=== PATIENT | female | born 1965 | race Caucasian/White ===

== ENCOUNTER 2019-09-03 08:53 | Outpatient (CLI) | payer OTHER, SELFPAY ==
--- NOTE | ~2019-09-03 | MM_ITS ---
EXAMINATION: MM screening [facility] BI w yomi HISTORY: Screening TECHNIQUE: Craniocaudal and mediolateral oblique 3-D tomosynthesis images were obtained and synthetic 2-D images were generated. CAD analysis was submitted and interpreted. COMPARISON: Comparison to multiple prior studies sequentially, with oldest reviewed study dated 06/25. BREAST PARENCHYMAL COMPOSITION: There are scattered areas of fibroglandular density. FINDINGS: There is no evidence of suspicious mass, calcification, or architectural distortion to sugg est malignancy in either breast. There has been no suspicious interval change. IMPRESSION: 1. No mammographic evidence of malignancy. 2. Recommend routine screening mammography in one year. BI-RADS Category 1: Negative Reviewed, dictated and finalized at location A.
== END 2019-09-03 08:54 | disposition home or self-care (01) ==
LOC: ANHIMG 08:56
PROVIDERS: PCP Family Medicine; Visit Provider Family Medicine
DX: Z12.31 Encounter for screening mammogram for malignant neoplasm of breast (principal)
CPT/HCPCS: 77063; 77067

== ENCOUNTER 2020-02-26 12:18 | Outpatient (NON) | payer OTHER, SELFPAY ==
[2020-02-26 22:42] LABS: SARS-CoV-2 RNA PCR Negative
== END 2020-02-26 12:19 ==
LOC: ANHCOVIDDT 12:19
PROVIDERS: PCP Family Medicine; Visit Provider Physician Assistant Medical
DX: Z20.822 Contact with and (suspected) exposure to COVID-19 (principal); R05 Cough; R09.81 Nasal congestion; R09.89 Other specified symptoms and signs involving the circulatory and respiratory systems; R51.9 Headache, unspecified; R53.83 Other fatigue
CPT/HCPCS: C9803; U0003; U0005

== ENCOUNTER 2020-09-05 09:42 | Outpatient (CLI) | payer OTHER, SELFPAY ==
--- NOTE | ~2020-09-05 | MM_ITS ---
EXAMINATION: MM screening [facility] BI w yomi HISTORY: Screening mammogram TECHNIQUE: Craniocaudal and mediolateral oblique 3-D tomosynthesis images were obtained and synthetic 2-D images were generated. CAD analysis was submitted and interpreted. COMPARISON: 09/03/2019, 08/12/2018, 08/07/2017, 07/31/2016 bilateral digital screening mammogram examinati ons BREAST PARENCHYMAL COMPOSITION: There are scattered areas of fibroglandular density. FINDINGS: Bilateral biopsy markers are noted. There is no evidence of suspicious mass, calcification, or architectural distortion to suggest malignancy in either breast. There has been no suspicious int erval change. IMPRESSION: 1. No mammographic evidence of malignancy. 2. Recommend routine screening mammography in one year. BI-RADS Category 2: Benign finding(s). Reviewed, dictated and finalized at location A.
== END 2020-09-05 09:43 | disposition home or self-care (01) ==
LOC: ANHIMG 09:45
PROVIDERS: PCP Family Medicine; Visit Provider Family Medicine
DX: Z12.31 Encounter for screening mammogram for malignant neoplasm of breast (principal)
CPT/HCPCS: 77063; 77067

== ENCOUNTER → 2020-11-10 02:38 | Outpatient (CLI) | payer OTHER, SELFPAY ==
[2020-11-10 16:55] LABS: SARS-CoV-2 RNA PCR Negative
== END ==
PROVIDERS: PCP Family Medicine; Visit Provider Physician Assistant Medical
DX: R51.9 Headache, unspecified (principal); Z20.822 Contact with and (suspected) exposure to COVID-19
CPT/HCPCS: C9803; U0003; U0005

== ENCOUNTER → 2021-08-18 08:46 | Outpatient (CLI) | payer OTHER, SELFPAY ==
--- NOTE | ~2021-08-18 | MR_ITS ---
EXAMINATION: MR lower leg LT wo con DATE: 08/18/2021 09:20 INDICATION: Pain at the anterior left tibia. TECHNIQUE: Magnetic resonance imaging (MRI) of the left lower leg was performed without intravenous c ontrast. A marker was placed over the region of concern. Sequences included axial, sagittal and jovani nal T1-weighted FSE and fluid sensitive FSE STIR. The contralateral right lower leg is included on th e coronal images. COMPARISON: None. FINDINGS: There is subtle thin increased periosteal T2 signal along the anteromedial cortex of the mid left tib ial diaphysis consistent with grade 1 medial tibial stress syndrome. No abnormal increased cortical o r marrow signal in the underlying bone to suggest high-grade stress injury. No fracture or pathologic marrow replacing process. Soft tissues are otherwise unremarkable with symmetric muscle bulk and sig nal in the bilateral calves. The visualized portions of the tendons and are normal. No abnormal mi s or fluid collections identified. IMPRESSION: 1. Focal periostitis along the anteromedial cortex of the mid left tibia without underlying bone sign al abnormalities consistent with grade 1 medial tibial stress syndrome. Reviewed, dictated and finalized at location A. IMPRESSION: 1. Focal periostitis along the anteromedial cortex of the mid left tibia withou t underlying bone signal abnormalities consistent with grade [address] ress syndrome.
== END ==
PROVIDERS: PCP Family Medicine; Visit Provider Orthopaedic Surgery
DX: M79.662 Pain in left lower leg (principal)
CPT/HCPCS: 73718

== ENCOUNTER 2021-09-29 08:47 | Outpatient (CLI) | payer OTHER, SELFPAY ==
--- NOTE | ~2021-09-29 | MM_ITS ---
EXAMINATION: MM screening [facility] BI w yomi HISTORY: Screening mammogram TECHNIQUE: Craniocaudal and mediolateral oblique 3-D tomosynthesis images were obtained and synthetic 2-D images were generated. CAD analysis was submitted and interpreted. COMPARISON: 09/05/2020, 01/04/2020 08/12/2018 bilateral screening mammograms BREAST PARENCHYMAL COMPOSITION: There are scattered areas of fibroglandular density. FINDINGS: 2 biopsy markers on the left mammogram history of prior benign biopsy. There There is no ev idence of suspicious mass, calcification, or architectural distortion to suggest malignancy in either breast. There has been no suspicious interval change. IMPRESSION: 1. No mammographic evidence of malignancy. 2. Recommend routine screening mammography in one year. BI-RADS Category 1: Negative Reviewed, dictated and finalized at location A.
== END 2021-09-29 08:48 | disposition home or self-care (01) ==
LOC: ANHIMG 08:52
PROVIDERS: PCP Family Medicine; Visit Provider Family Medicine
DX: Z12.31 Encounter for screening mammogram for malignant neoplasm of breast (principal)
CPT/HCPCS: 77063; 77067

== ENCOUNTER 2021-11-16 15:56 | Outpatient (NON) | payer OTHER, SELFPAY ==
[2021-11-16 19:17] LABS: IFOB Positive Control Positive; Immunochemical Fecal Occult Bl Negative (N)
== END 2021-11-16 15:57 | disposition home or self-care (01) ==
PROVIDERS: PCP Family Medicine; Visit Provider Family Medicine
DX: Z12.11 Encounter for screening for malignant neoplasm of colon (principal)
CPT/HCPCS: 82274

== ENCOUNTER 2022-12-25 16:54 | Outpatient (CLI) | payer OTHER, SELFPAY ==
--- NOTE | ~2022-12-25 | MM_ITS ---
EXAMINATION: MM screening [facility] BI w yomi HISTORY: Screening mammogram TECHNIQUE: Craniocaudal and mediolateral oblique 3-D tomosynthesis images were obtained and synthetic 2-D images were generated. CAD analysis was submitted and interpreted. COMPARISON: 09/29/2021, 09/05/2020, 09/03/2019 BREAST PARENCHYMAL COMPOSITION: There are scattered areas of fibroglandular density. FINDINGS: No suspicious mass, calcification, or architectural distortion are identified in either shoaib ast to suggest malignancy. There has been no suspicious interval change. IMPRESSION: 1. No mammographic evidence of malignancy. 2. Recommend routine screening mammography in one year. BI-RADS Category 1: Negative Reviewed, dictated and finalized at location A. [employer]
== END 2022-12-25 16:55 | disposition home or self-care (01) ==
PROVIDERS: PCP Family Medicine; Visit Provider Family Medicine
DX: Z12.31 Encounter for screening mammogram for malignant neoplasm of breast (principal)
CPT/HCPCS: 77063; 77067

== ENCOUNTER 2023-05-31 01:16 | Day surgery (SDC) | payer OTHER, SELFPAY ==
--- NOTE | 2023-05-22 17:08 | PC.NURSE ---
Report to the Outpatient Waiting Room, entrance under the green pavilion located off [facility], at time 0830 on date 05/31/23. Planned Procedure Time: 1030. Time changes happen often and if your time is changed the preop area will call you the afternoon before. - You and your visitor will be asked to self-screen and do not enter if you have any COVID symptoms. - A mask is optional within the hospital at this time. Patients may have clear liquids (water, carbonated beverages, clear teas, apple juice) until 3 hours prior to surgery with a maximum of 20 ounces. 0730 - No food from midnight until time of surgery - Infants may have breast milk until 4 hours before surgery, formula 6 hours prior to surgery. - Children will be allowed to drink immediately following surgery. If applicable, please bring a bottle or sippy cup to assist with drinking. Juice, water, soda, and popsicles are readily available. For infants on formula, please bring formula the day of surgery. Pacifiers are allowed. Take the following medications with a SIP of water the morning of surgery: NONE DO NOT STOP ANY OF YOUR OTHER PRESCRIPTION MEDICATIONS PRIOR TO SURGERY ?EXCEPT THE FOLLOWING Medications to discontinue per physician VITAMINS AND SUPPLEMENTS- PLEASE STOP 3 DAYS PRIOR TO YOUR PROCEDURE Date to take last dose Please no make-up, nail thai, hairspray, perfume, deodorant, or body powder the day of surgery. No jewelry (including any body piercings) or valuables the day of surgery, leave them at home. Please take a shower or bath the night before, or the morning of, surgery with an antibacterial soap. Wear comfortable, loose fitting clothing. Children are encouraged to wear pajamas. - Jewelry must be removed prior to entering the operating room. Rings and piercings that are not removed may be cut off. - The hospital will not accept responsibility for valuables. - Please leave all valuables, including medications, at home the day of surgery. If you are going home after surgery, a licensed milk wagon driver must drive you home. - NO public transportation without another adult if you receive anesthesia. - We recommend that an adult stay with you for 24 hours following discharge. - We also recommend that you do not drive, make important decision, drink alcoholic beverages, or take any drugs that were not prescribed by your health care provider for at least 24 hours after your discharge time. For Pediatric surgeries, we recommend two adults accompany the child home. Follow any additional instructions given to you from your surgeon. If you or anyone in your household have experienced Covid symptoms in the past week, please notify your surgeon or the nurse liaison at the phone number below for possible testing. Telephone instructions given to PATIENT- BETHANY AVILA and asked if any additional questions and then verbalized understanding. Patient advised to call surgeon office or pre surgery nurse liaison [phone] if any additional questions.
[2023-05-22 17:15] VITALS: BMI 25.1
--- NOTE | 2023-05-26 21:13 | PM.IMHP ---
H&P: HPI History of Present Illness Date/Time: 05/26/23 21:13 Chief Complaint: DUANE Narrative: 57 yo with mixed incontinence. Here for treatment of DUANE Review of Systems Review of Systems: All systems reviewed & are unremarkable except as noted in HPI and below [facility] Past Medical History Medical History (Updated 05/26/23 @ 21:15 by Carlos Oliveira MD) Benign hypertension Mixed hyperlipidemia 8.16.21 ct coronary artery calcium score: 0 Postmenopausal atrophic vaginitis Stress incontinence, female Family History Family History Other Family history of malignant neoplasm Social History Social History Smoking status: Never smoker Alcohol intake: current Drinks per week: 4 Substance use: never Substance use type: does not use Do You Feel Safe in your Home?: Yes Lack of Transportation: No Lack of Food: Never True Current Housing: I Have Housing Concerned About Future Housing: No Difficulty Paying Gas/Electric Bills: No Difficulty Paying for Meds: No Currently Unemployed: No Education: Master's Degree or Higher Difficulty w/ Childcare or Family Care: No Occupation/Education: occupation Gender identity (if verbalized by the patient): Female Spiritual care concerns: No Meds Home Medications and Allergies Home Medications Medication Instructions Recorded Confirmed Type calcium carbonate 500 mg-vitamin 2 tablet PO USEASDIRECTD 10/23/22 05/22/23 History D3 10 mcg (400 unit) tablet cetirizine 10 mg tablet (Zyrtec) 10 mg PO DAILY 10/23/22 05/22/23 History rosuvastatin 5 mg tablet 5 mg PO HS 10/23/22 05/22/23 History [place] 3 3 cap PO DIRECTED 05/22/23 05/22/23 History estradiol 1 mg/gram (0.1 %) 1,000 mg topical HS 05/22/23 05/22/23 History transdermal gel packet lisinopril 5 mg tablet 5 mg PO DAILY 05/22/23 05/22/23 History metformin 500 mg tablet,extended 500 mg PO BID 05/22/23 05/22/23 History release 24hr (osmotic) progesterone micronized 200 mg 200 mg PO HS 05/22/23 05/22/23 History capsule Allergies Allergy/AdvReac Type Severity Reaction Status Date / Time No Known Allergies Allergy Verified 05/22/23 16:48 Exam Narrative: NAD normal breathing A+o X3 + urethral mobility Assessment and Plan Assessment and plan (1) Stress incontinence, female: Code(s): N39.3 - Stress incontinence (female) (male) Status: Acute Assessment and Plan: urethral sling
--- NOTE | 2023-05-31 04:50 | WPDHPUPDATE1 ---
History and Physical Update Update Date/Time: 05/31/23 04:50 History and Physical has been reviewed, including an updated exam of the patient. There are NO changes in the patient's condition. Risks, benefits, and alternatives have been discussed and questions answered. Patient agrees to proceed with procedure.
[2023-05-31 08:28] VITALS: BP 118/75; PULSE 71; RESP 16; TEMP 36.8; O2SAT 99
--- NOTE | 2023-05-31 09:05 | P.PNAN_ITS ---
Anes - Initial Pre Proc Eval Procedure: Operation Date: 05/31/23 09:45 Proposed Procedures p Urethral Sling - Carlos Oliveira MD Date/Time: 05/31/23 09:05 Surgeon: Carlos Oliveira MD Pre Op Diagnosis: stress incontinence Patient Data Age: 57 Gender: F Height: 1.7 m Weight: 78.5 kg Last Vital Signs Temp 36.8 C 05/31/23 08:28 Pulse 71 05/31/23 08:28 Resp 16 05/31/23 08:28 BP 118/75 05/31/23 08:28 Pulse Ox 99 05/31/23 08:28 O2 Del Method Room Air 05/31/23 08:28 Allergies Allergy/AdvReac Type Severity Reaction Status Date / Time No Known Allergies Allergy Verified 05/31/23 07:54 Home Medications Medication Instructions Recorded Confirmed Type calcium carbonate 500 mg-vitamin 2 tablet PO USEASDIRECTD 10/23/22 05/22/23 History D3 10 mcg (400 unit) tablet cetirizine 10 mg tablet (Zyrtec) 10 mg PO DAILY 10/23/22 05/22/23 History rosuvastatin 5 mg tablet 5 mg PO HS 10/23/22 05/22/23 History [place] 3 3 cap PO DIRECTED 05/22/23 05/22/23 History estradiol 1 mg/gram (0.1 %) 1,000 mg topical HS 05/22/23 05/22/23 History transdermal gel packet lisinopril 5 mg tablet 5 mg PO DAILY 05/22/23 05/22/23 History metformin 500 mg tablet,extended 500 mg PO BID 05/22/23 05/22/23 History release 24hr (osmotic) progesterone micronized 200 mg 200 mg PO HS 05/22/23 05/22/23 History capsule Patient hx anesthesia problems: none Family hx anesthesia problems: none Results Review: All pre-operative results and documents have been reviewed as part of the pre- operative evaluation. [facility] Past Medical History Medical History Benign hypertension Mixed hyperlipidemia 8.16.21 ct coronary artery calcium score: 0 Postmenopausal atrophic vaginitis Stress incontinence, female Family History Family History Other Family history of malignant neoplasm Social History Social History Smoking status: Never smoker Alcohol intake: current Drinks per week: 4 Substance use: never Substance use type: does not use Do You Feel Safe in your Home?: Yes Lack of Transportation: No Lack of Food: Never True Current Housing: I Have Housing Concerned About Future Housing: No Difficulty Paying Gas/Electric Bills: No Difficulty Paying for Meds: No Currently Unemployed: No Education: Master's Degree or Higher Difficulty w/ Childcare or Family Care: No Occupation/Education: occupation Gender identity (if verbalized by the patient): Female Spiritual care concerns: No Anes - Eval Final PreProcedure Day of Procedure 05/31/23 09:05 Patient weight: overweight Heart: regular rate and rhythm Lungs: clear to auscultation Airway: Mallampati scale class II Neurological: alert and oriented Last oral intake: >/= 8 hours ASA classification: II Emergent: no Anesthetic plan: proceed Anesthesia type and monitoring: general LMA and standard monitoring Results Review: All pre-operative results and documents have been reviewed as part of the pre- operative evaluation. Informed Consent: The patient's anesthetic plan and its attendant risks and benefits were discussed with the patient/family/POA. Questions were solicited and answers provided to the satisfaction of the patient/family/POA.
[2023-05-31] MEDS: LACTATED RINGERS 1,000 ML 30 ML IV CONT (09:36)
[2023-05-31] MEDS: ceFAZolin 2 GM/D5W 50 ML 2 GM/50 ML BAG IVPB (09:40)
[2023-05-31 10:12] VITALS: BP 96/56; PULSE 69; RESP 16; O2SAT 96
--- NOTE | 2023-05-31 10:16 | P.OP_ITS ---
Procedure Note - Detailed Date of Procedure 05/31/23 Pre-op Diagnosis stress incontinence Post-op Diagnosis Same Procedure Performed mid urethral sling cystoscopy Surgeon Carlos Oliveira MD Anesthesia MAC and Local Indications This is a female with confirm stress urinary incontinence. She desires surgical correction. She understands the risks of bleeding, infection, injury to the urinary tract, vaginal mesh extrusion, urinary tract mesh erosion, obstructive voiding requiring a secondary procedure, hip and leg pain, dyspareunia, inability to improve overactive bladder symptoms. She agrees to proceed. Description of Procedure She was correctly identified. Informed consent obtained. She was brought the operating room. She was given appropriate anesthesia. She was given appropriate perioperative antibiotics. A time-out performed. I marked out the site of the inner thigh incisions. I anesthetized the skin and made those incisions. I anesthetized the anterior vaginal wall over the mid urethra. I made a 1 cm incision. I dissected out laterally taking great care not to injure the urethra or vaginal wall. I passed the helical trocars. First on the left. Then on the right. I did this from the thigh incision towards the vaginal inc ision. The sling was connected to the trocars and brought out through the thigh incision. I tensioned the sling appropriately. I cut and the plastic sheaths. I then closed the incision with 2 0 Vicryl. On cystoscopy there is no tumors or surgical artifact. There was no surgical artifact in the urethra. I cut the excess sling material. Close incisions with glue. She was awakened and transferred to the PACU in stable condition. Implants Urethral sling Estimated Blood Loss 20 Drains No Packing No Pathology None sent Complications No immediate complications Condition Stable Disposition PACU
[2023-05-31 10:30] VITALS: BP 105/68; PULSE 66; RESP 15; O2SAT 99
[2023-05-31] MEDS: oxyCODONE HCL (*CRX) 5 MG TAB IR PO (10:54)
[2023-05-31 11:00] VITALS: BP 116/78; PULSE 56; RESP 15
[2023-05-31 11:19] VITALS: BP 128/72; PULSE 48; RESP 16
== END 2023-05-31 11:34 | disposition home or self-care (01) ==
PROVIDERS: PCP Family Medicine; Visit Provider Urology
PROC: (CPT 57288; principal; 2023-05-31 09:45)
DX: N39.3 Stress incontinence (female) (male) (principal); I10 Essential (primary) hypertension; E78.2 Mixed hyperlipidemia; Z79.84 Long term (current) use of oral hypoglycemic drugs
CPT/HCPCS: 57288; A9270; C1771; J0690; J2250; J2704; J7030; J7120

== ENCOUNTER 2023-10-02 15:14 | Outpatient (CLI) | payer OTHER, SELFPAY ==
--- NOTE | ~2023-10-02 | MM_ITS ---
EXAMINATION: MM screening [facility] BI w yomi HISTORY: Screening TECHNIQUE: Craniocaudal and mediolateral oblique 3-D tomosynthesis images were obtained and synthetic 2-D images were generated. CAD analysis was submitted and interpreted. COMPARISON: Comparison to multiple prior studies sequentially, with oldest reviewed study dated 08/07. BREAST PARENCHYMAL COMPOSITION: Not dense: There are scattered areas of fibroglandular density. FINDINGS: There is no evidence of suspicious mass, calcification, or architectural distortion to sugg est malignancy in either breast. There has been no suspicious interval change. IMPRESSION: 1. No mammographic evidence of malignancy. 2. Recommend routine screening mammography in one year. BI-RADS Category 1: Negative Reviewed, dictated and finalized at location B.
== END 2023-10-02 15:15 | disposition home or self-care (01) ==
LOC: ANHIMG 15:15
PROVIDERS: PCP Family Medicine; Visit Provider Family Medicine
DX: Z12.31 Encounter for screening mammogram for malignant neoplasm of breast (principal)
CPT/HCPCS: 77063; 77067

== ENCOUNTER 2023-12-25 13:57 | Outpatient (CLI) | payer OTHER, SELFPAY ==
--- NOTE | ~2023-12-25 | US_ITS ---
US pelvic complete w TV Ordering provider: Jun Deleon History: . Abnormal uterine vaginal bleeding . Comparison: None. Technique: Transabdominal and endovaginal ultrasound of the pelvis (Doppler ultrasound interrogation techniques used as needed for this exam.) FINDINGS: CERVIX: Normal. UTERUS: Measures 9.3x 4.6x 6.1 cm in length which is within normal limits and is anteverted. No myom etrial masses. ENDOMETRIUM: Normal in thickness measuring 7 mm. Vascular areas seen in the left endometrial cavity m easuring 1.6 x 1.5 x 1.5 cm. Evaluation for is advised. Polyp and submucosal fibroid is als o possible. CUL DE SAC: No free fluid. RIGHT OVARY: Not visualized. LEFT OVARY: Normal in size measuring 2.7x 1.7x 1.9 cm. Normal echotexture. Doppler vascular flow pres ent. ADNEXA: Normal. No mass. IMPRESSION: Vascular area in the left endometrial cavity. Clinical correlation and follow-up advised. Otherwise, normal pelvic ultrasound. Reviewed, dictated and finalized at location A. [employer] IMPRESSION: Vascular area in the left endometrial cavity. Clinical correlation and follow-u p advised. Otherwise, normal pelvic ultrasound.
== END 2023-12-25 13:58 | disposition home or self-care (01) ==
LOC: MICIMG 13:58
PROVIDERS: PCP Family Medicine
DX: N93.9 Abnormal uterine and vaginal bleeding, unspecified (principal); N93.8 Other specified abnormal uterine and vaginal bleeding
CPT/HCPCS: 76830; 76856

== ENCOUNTER 2024-01-23 16:28 | Outpatient (CLI) | payer OTHER, SELFPAY ==
[2024-01-23 16:45] LABS: Hematocrit 42.2 % (37.0-47.0); Hemoglobin 14.6 g/dL (12.0-15.0)
[2024-01-23 16:56] LABS: Anion Gap 5 mmol/L (4-12); Blood Urea Nitrogen 17 mg/dL (7-17); Calcium 9.4 mg/dL (8.4-10.2); Carbon Dioxide 27 mmol/L (22-30); Chloride 104 mmol/L (98-107); Estimated Glomerular Filt Rate > 60; Glucose 99 mg/dL (65-110); Sodium 136 mmol/L (137-145)
== END 2024-01-23 16:29 | disposition home or self-care (01) ==
LOC: ANHLAB 16:30
PROVIDERS: Anesthesiology; PCP Family Medicine; Visit Provider Student in an Organized Health Care Education/Training Program
DX: N95.0 Postmenopausal bleeding (principal); Z79.899 Other long term (current) drug therapy
CPT/HCPCS: 36415; 80048; 85014; 85018

== ENCOUNTER 2024-01-30 01:29 | Day surgery (SDC) | payer OTHER, SELFPAY ==
[2024-01-23 10:02] VITALS: BMI 25.0
--- NOTE | 2024-01-23 10:25 | PC.NURSE ---
Report to the Outpatient Waiting Room, entrance under the green pavilion located off [facility], at time _10:00AM on date 01/30/24 . Planned Procedure Time: __12:00 .? Time changes happen often and if your time is changed the preop area will call you the afternoon before. - You and your visitor will be asked to self-screen and do not enter if you have any COVID symptoms. Please call surgeon if you need to reschedule. - A mask is optional within the hospital at this time. Patients may have clear liquids (water, carbonated beverages, clear teas, apple juice) until 3 hours prior to surgery with a maximum of 20 ounces. - No food from midnight until time of surgery and no smoking. This includes no chewing gum, candy or mints. Take only the following medications with a SIP of water on the morning of surgery: __NONE DO NOT STOP ANY OF YOUR OTHER PRESCRIPTION MEDICATIONS PRIOR TO SURGERY EXCEPT THE FOLLOWING Medications to discontinue per physician CALCIUM W/ VIT D; OMEGA 3 Date to take last dose____01/27/24 Please no make-up, nail malawian, hairspray, perfume, deodorant, or body powder the day of surgery.? No jewelry (including any body piercings) or valuables the day of surgery, leave them at home.? Please take a shower or bath the night before, or the morning of, surgery with an antibacterial soap.? Wear comfortable, loose fitting clothing.? - Jewelry must be removed prior to entering the operating room.? Rings and piercings that are not removed may be cut off. - The hospital will not accept responsibility for valuables.? - Please leave all valuables, including medications, at home the day of surgery. If you are going home after surgery, a licensed inventory associate and driver must drive you home.? - NO public transportation without another adult if you receive anesthesia. - We recommend that an adult stay with you for 24 hours following discharge. - We also recommend that you do not drive, make important decision, drink alcoholic beverages, or take any drugs that were not prescribed by your health care provider for at least 24 hours after your discharge time. Follow any additional instructions given to you from your surgeon. Telephone instructions given to __CORTNEYA and asked if any additional questions and then verbalized understanding. Patient advised to call surgeon office or pre surgery nurse liaison [phone] if any additional questions.
--- NOTE | 2024-01-30 07:30 | PM.IMHP ---
H&P: HPI History of Present Illness Date/Time: 01/30/24 07:30 Chief Complaint: postmenopausal bleeding thickened endometrium Narrative: 58-year-old female who presents for hysteroscopy D&C for postmenopausal bleeding and thickened endometrium. The patient had a pelvic ultrasound ordered after an episode of postmenopausal bleeding. Last March patient started hormone replacement therapy. She has been receiving Estradiol/Testosterone pellets as well as a Progesterone pill. Pelvic US showed a thickened endometrium at 7mm with Vascular area in the endometrial cavity measuring 1.5 cm. Review of Systems Cardiovascular: Cardiovascular: Denies chest pain, Denies leg edema, Denies palpitations, Denies dyspnea and Denies dyspnea on exertion Respiratory: Respiratory: Denies cough, Denies dyspnea and Denies dyspnea on exertion Gastrointestinal: Gastrointestinal: Denies abdominal pain, Denies constipation, Denies diarrhea, Denies nausea and Denies vomiting Genitourinary: Genitourinary: Denies hematuria, Denies urinary frequency, Denies dysuria, Denies pelvic pain, Denies urinary incontinence and Denies vaginal discharge Neurologic: Reports system reviewed and no additional complaints, except as documented Psychiatric: Psychiatric: Reports no additional psychiatric complaints Endocrine: Endocrine: Denies palpitations [facility] Past Medical History Medical History Benign hypertension Mixed hyperlipidemia 8.16.21 ct coronary artery calcium score: 0 Postmenopausal atrophic vaginitis Stress incontinence, female Surgical History Surgical History History of bladder suspension procedure Family History Family History Other Family history of malignant neoplasm Social History Social History Smoking status: Never smoker Alcohol intake: never Drinks per week: 2 Substance use: never Substance use type: does not use Do You Feel Safe in your Home?: Yes Lack of Transportation: No Lack of Food: Never True Current Housing: I Have Housing Concerned About Future Housing: No Difficulty Paying Gas/Electric Bills: No Difficulty Paying for Meds: No Currently Unemployed: No Education: Master's Degree or Higher Difficulty w/ Childcare or Family Care: No Living arrangements: with family Occupation/Education: occupation Gender identity (if verbalized by the patient): Female Spiritual care concerns: No Meds Home Medications and Allergies Home Medications ?Medication ?Instructions ?Recorded ?Confirmed ?Type calcium 500 mg (as 2 tablet PO USEASDIRECTD 10/23/22 01/23/24 History carbonate)-vitamin D3 10 mcg (400 unit) tablet cetirizine 10 mg tablet (Zyrtec) 10 mg PO DAILY 10/23/22 01/23/24 History [place] 3 3 cap PO DIRECTED 05/22/23 01/23/24 History lisinopril 5 mg tablet 5 mg PO DAILY #90 tabs 09/24/23 01/23/24 Rx metformin 500 mg tablet,extended 500 mg PO BID #180 tabs 10/16/23 01/23/24 Rx release 24 hr progesterone micronized 200 mg 300 mg PO HS 10/22/23 01/23/24 History capsule spironolactone 100 mg tablet 100 mg PO DAILY 10/22/23 01/23/24 History rosuvastatin 5 mg tablet 5 mg PO HS #90 tabs 10/28/23 01/23/24 Rx Allergies Allergy/AdvReac Type Severity Reaction Status Date / Time No Known Allergies Allergy Verified 01/23/24 10:25 Exam Const: General: no acute distress Eyes: EOM: EOMs intact bilaterally Neck: Neck: supple Thyroid: thyroid normal Chest: Breast/axilla inspection: normal inspection of the breasts Breast/axilla palpation: normal palpation of the breasts, normal palpation of the axillae and no axillary lymphadenopathy Resp: Effort & Inspection: normal respiratory effort Auscultation: clear to auscultation bilaterally Cardio: Rate: regular rate Rhythm: regular rhythm GI: Inspection: non-distended GI Palp: Yes Soft to palpation, No Tenderness to palpation present (GI) and No Guarding due to palpation present (GI) Auscultation: normal bowel sounds : General: No bladder normal to palpation External Female Exam: normal external appearance Speculum Exam - Vagina: normal vaginal discharge and No vaginal bleeding Speculum Exam - Cervix: nontender Bimanual exam- vagina & uterus: No bladder normal to palpation and No Cervical tenderness present OB/external & speculum: No vaginal bleeding Skin: General skin exam: normal color and no rashes or lesions noted Neuro: Cognition (Neuro): normal cognition Speech: normal speech Extrem: General: normal to inspection and no edema Psych: Mental Status: mental status grossly normal Affect: normal affect Assessment and Plan Assessment and plan (1) Endometrial thickening on ultrasound: Code(s): R93.89 - Abnormal findings on diagnostic imaging of other specified body structures Status: Acute Assessment and Plan: 58-year-old female who presents to discuss recent pelvic ultrasound Patient had a pelvic ultrasound ordered after episodes of postmenopausal bleeding Pelvic ultrasound images reviewed endometrium 7 mm. Vascular areas seen in the left endometrial cavity measuring 1.6 x 1.5 x 1.5 cm Recommended tissue sampling Discussed hysteroscopy D& C. Risks, benefits, alternatives discussed Will plan for hysteroscopy D&C (2) Postmenopausal bleeding: Code(s): N95.0 - Postmenopausal bleeding Status: Acute
--- NOTE | 2024-01-30 10:27 | P.PNAN_ITS ---
Anes - Initial Pre Proc Eval Procedure: Operation Date: 01/30/24 12:00 Proposed Procedures p Hysteroscopy Dilation and Curettage - Rome Roberson MD Date/Time: 01/30/24 10:27 Surgeon: Rome Roberson MD Pre Op Diagnosis: Post Menopausal Bleeding Patient Data Age: 58 Gender: F Height: 1.7 m Weight: 72.3 kg Allergies Allergy/AdvReac Type Severity Reaction Status Date / Time No Known Allergies Allergy Verified 01/23/24 10:25 Home Medications ?Medication ?Instructions ?Recorded ?Confirmed ?Type calcium 500 mg (as 2 tablet PO USEASDIRECTD 10/23/22 01/23/24 History carbonate)-vitamin D3 10 mcg (400 unit) tablet cetirizine 10 mg tablet (Zyrtec) 10 mg PO DAILY 10/23/22 01/23/24 History [place] 3 3 cap PO DIRECTED 05/22/23 01/23/24 History lisinopril 5 mg tablet 5 mg PO DAILY #90 tabs 09/24/23 01/23/24 Rx metformin 500 mg tablet,extended 500 mg PO BID #180 tabs 10/16/23 01/23/24 Rx release 24 hr progesterone micronized 200 mg 300 mg PO HS 10/22/23 01/23/24 History capsule spironolactone 100 mg tablet 100 mg PO DAILY 10/22/23 01/23/24 History rosuvastatin 5 mg tablet 5 mg PO HS #90 tabs 10/28/23 01/23/24 Rx Patient hx anesthesia problems: none Family hx anesthesia problems: none Results Review: All pre-operative results and documents have been reviewed as part of the pre- operative evaluation. [facility] Past Medical History Medical History Mixed hyperlipidemia 8.16.21 ct coronary artery calcium score: 0 Benign hypertension Postmenopausal atrophic vaginitis Stress incontinence, female Surgical History Surgical History History of bladder suspension procedure Family History Family History Other Family history of malignant neoplasm Social History Social History Smoking status: Never smoker Alcohol intake: never Drinks per week: 2 Substance use: never Substance use type: does not use Do You Feel Safe in your Home?: Yes Lack of Transportation: No Lack of Food: Never True Current Housing: I Have Housing Concerned About Future Housing: No Difficulty Paying Gas/Electric Bills: No Difficulty Paying for Meds: No Currently Unemployed: No Education: Master's Degree or Higher Difficulty w/ Childcare or Family Care: No Living arrangements: with family Occupation/Education: occupation Gender identity (if verbalized by the patient): Female Spiritual care concerns: No Anes - Eval Final PreProcedure Day of Procedure 01/30/24 10:27 Patient weight: normal Heart: regular rate and rhythm Lungs: clear to auscultation Airway: Mallampati scale class II Neurological: alert and oriented Last oral intake: >/= 8 hours ASA classification: II Emergent: no Anesthetic plan: proceed Anesthesia type and monitoring: general GIVS and standard monitoring Results Review: All pre-operative results and documents have been reviewed as part of the pre- operative evaluation. Informed Consent: The patient's anesthetic plan and its attendant risks and benefits were discussed with the patient/family/POA. Questions were solicited and answers provided to the satisfaction of the patient/family/POA.
[2024-01-30 10:30] VITALS: BP 124/78; PULSE 74; RESP 16; TEMP 36; O2SAT 99
[2024-01-30] MEDS: LACTATED RINGERS 1,000 ML 30 ML IV CONT (10:30)
[2024-01-30] MEDS: ACETAMINOPHEN 500 MG TABLET 1000 MG PO (10:46)
--- NOTE | 2024-01-30 10:46 | WPDHPUPDATE1 ---
History and Physical Update Update Date/Time: 01/30/24 10:46 History and Physical has been reviewed, including an updated exam of the patient. There are NO changes in the patient's condition. Risks, benefits, and alternatives have been discussed and questions answered. Patient agrees to proceed with procedure.
--- NOTE | 2024-01-30 11:14 | W.PM.PROC2 ---
Procedure Note - Detailed Date of Procedure 01/30/24 Pre-op Diagnosis Post Menopausal Bleeding thickened endometrium Post-op Diagnosis Same Procedure Performed hysteroscopy dilation & curettage Surgeon Rome Roberson MD Anesthesia General Indications postmenopausal bleeding thickened endometrium Findings globally thickened endometrium, large polypoid lesion extending from the anterior left uterine serosa, there is a calcified lesions adjacent to the polypoid lesions that appears to be a fibroid, normal tubal ostia bilaterally Description of Procedure Maya Price presents for the above procedure. She was counseled as to the indications, risks, benefits, and alternatives to surgery, with the risks including bleeding, infection, damage to surrounding organs, VTE, and complications of anesthesia. Her verbal and written consent was obtained. PROCEDURE: The patient was taken to the OR and general anesthesia induced. She was prepped and draped in Diego stirrups with support of the back and bilateral lower extremities. I/O catheterization performed of the bladder. The above findings were noted. A single tooth tenaculum was placed on the anterior lip of the cervix. Hysteroscopy, using a normal saline medium, was performed and showed the above findings. Operative hysteroscopy was performed to obtain tissue sampling with the oscillating blade under direct visualization. The polypoid lesion and the fibroid lesion were sampled as well as the endometrial lining. Sharp uterine curettage was then performed and tissue placed on Telfa. The tenaculum was removed and hemostasis was observed. The patient tolerated the procedure well. Sponge, lap, and needle counts were correct. The patient had SCD's on throughout the case for VTE prophylaxis. The patient was taken to the recovery room in stable condition. Estimated Blood Loss 5 Urine Output 25 Drains No Packing No Pathology Yes (endometrial curettings ) Complications No immediate complications Condition Stable Disposition PACU [facility] Billing Surgery - Charge Forward: Surgery Billing
[2024-01-30 11:18] VITALS: BP 108/69; PULSE 78; RESP 16; O2SAT 97
[2024-01-30 11:48] VITALS: BP 108/72; PULSE 72; RESP 16; O2SAT 96
[2024-01-30 12:18] VITALS: BP 121/69; PULSE 54; RESP 16
[2024-01-30 12:45] VITALS: BP 105/65; PULSE 67
== END 2024-01-30 13:00 | disposition home or self-care (01) ==
PROVIDERS: PCP Family Medicine; Visit Provider Student in an Organized Health Care Education/Training Program
PROC: 0U5B8ZZ Destruction of Endometrium, Via Natural or Artificial Opening Endoscopic (ICD-10-PCS; CPT 58563; principal; 2024-01-30 12:00)
DX: N95.0 Postmenopausal bleeding (principal); E78.5 Hyperlipidemia, unspecified; I10 Essential (primary) hypertension; N39.3 Stress incontinence (female) (male); Z79.84 Long term (current) use of oral hypoglycemic drugs; N84.0 Polyp of corpus uteri
CPT/HCPCS: 58558; 88305; A9270; J1100; J1885; J2003; J2250; J2405; J2704; J7030; J7120

== ENCOUNTER 2024-12-02 07:57 | Outpatient (CLI) | payer OTHER, SELFPAY ==
--- NOTE | ~2024-12-02 | MM_ITS ---
EXAMINATION: MM screening an[facility] BI w [facility] HISTORY: Screening TECHNIQUE: Craniocaudal and mediolateral oblique 3-D tomosynthesis images were obtained and synthetic 2-D images were generated. CAD analysis was submitted and interpreted. COMPARISON: Comparison to multiple prior studies sequentially, with oldest reviewed study dated , 09/03/2019 BREAST PARENCHYMAL COMPOSITION: There are scattered areas of fibroglandular density. FINDINGS: There is no evidence of suspicious mass, calcification, or architectural distortion to suggest malignancy in either breast. Biopsy clips in both breast. IMPRESSION: 1. No mammographic evidence of malignancy. 2. Recommend routine screening mammography in one year. BI-RADS Category 1: Negative Reviewed, dictated and finalized at location B.
--- OUTSIDE RECORDS SUMMARY | 2024-12-02 08:03 | XMS_ITS | Clinical Summary ---
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 Gender Identity Not on file Sexual Orientation Not on file Plan of Treatment Health Maintenance Due Date Last Done Comments Hepatitis C Virus (HCV) Screening 1966 TdaP Immunization 1966 Hepatitis B Immunization (1 of 3 - 19+ 3-dose series) 1985 Pap Smear 08/18/1987 Cervical Cancer Screening (CCS) 1996 HPV/Cotest 1996 Cologuard 08/18/2011 Colonoscopy 08/18/2011 Colorectal Cancer Screening 08/18/2011 Immunochemical Fecal Occult Blood 08/18/2011 Pneumococcal Immunization (5 0+ years) (1 of 1 - PCV) 2016 Zoster Immunization (1 of 2) 2016 Influenza Immunization (#1) 2024 SARS-COV-2 Immunization ( season) 2024 Respiratory Syncytial Virus (RSV) Immunization (Adult) (1 - 1-dose 75+ series) 2041 Human Papillomavirus (HPV) Immunization Aged Out No longer eligible b ased on patient's age to complete this topic Meningococcal Immunization (ACWY) Aged Out No longer eligible based on patient's age to complete this topic Rotavirus Immunization Aged Out No lo nger eligible based on patient's age to complete this topic
--- OUTSIDE RECORDS SUMMARY | 2024-12-02 08:03 | XMS_ITS | Clinical Summary ---
Author Organization [facility] [place] [address] [facility] [address] Address [address] [place] [address] Care Team Providers Care Radiator Tester Name Role Phone Juliet Turner MD Primary Care Provider + Allergies No known active allergies Medications cetirizine (ZyrTEC) 10 mg tablet Take 10 mg by mouth daily Active lisinopriL (PRINIVIL,ZESTRI L) 5 mg tablet Take 5 mg by mouth daily 2 Active rosuvastatin (CRESTOR) 5 mg tablet TAKE 1 TABLET DAILY 30 tablet 11 4 Active metFORMIN (FORTAMET) 500 mg 24 hr tablet Take 2 tablets (1,000 mg total) by mouth daily with breakfast Active albuterol HFA (PROVENTIL HFA,VENTOLIN HFA,PROAIR HFA) 90 mcg/actuation inhalerIndicatio ns:Lower respiratory tract infection Inhale 2 puffs every 4 (four) hours as needed for wheezing 1 each 5 Active inhalational spacing device spacerIndication s:Lower respiratory tract infection 1 Device every 4 (four) hours as needed (use with Albuterol inhaler prn) 1 each 5 Active Active Problems Problem Noted Date Diagnosed Date Primary hypertension 01/10/2022 Elevated blood pressure read ing without diagnosis of hypertension 09/14/2019 Mixed dyslipidemia 09/14/2019 Skin neoplasm 03/24/2015 Actinic keratosis 03/24/2015 Medical History Medical History Date Comments Dyslipidemia Family History Medical History Relation Name Comments Diabetes Other Family history of diabetes mellitus - (Added by TW Conv) Relation Name Status Comments Other Social History Tobacco Use Types Packs/Day Years Used Date Smoking Tobacco: Never Smokeless Tobacco: Never Tobacco Cessation:Counseling Given: Not Answered Alcohol Use Standard Drinks/Week Comments Yes 0 (1 standard drink = 0.6 oz pur e alcohol) Comments Unknown Sex and Gender Information Value Date Recorded Sex Assigned at Not on file 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 Gender Identity Not on file Sexual Orientation Not on file Obstetrics History Last Filed Vital Signs Vital Sign Reading Time Taken Comments Blood Pressure 139/80 05/17/2024 6:09 PM CDT Pulse 86 05/17/2024 6:09 PM CDT Temperature 38.3 C (101 F) 05/17/2024 6:09 PM CDT Respiratory Rate 18 05/17/2024 6:09 PM CDT Oxygen Saturation 94% 05/17/2024 6:09 PM CDT Inhaled Oxygen Concentration - - Weight 76.4 kg (168 lb 8 oz) 05/17/2024 6:09 PM CDT Height 172.7 cm (5' 7.99) 05/17/2024 6:09 PM CD T Body Mass Index 25.63 05/17/2024 6:09 PM CDT Plan of Treatment Health Maintenance Due Date Last Done Comments Breast Cancer Screening-Mammogram 1966 Cervical Cancer Screening 1966 Colon Cancer Screening-Colonoscopy 1966 Depression Screening 1966 Hepatitis C Screening 1966 Hepatitis B Screening 1984 Regular Well Visit/Exam 18-64 1984 Zoster Vaccine (1 of 2) 2016 Influenza Vaccine (#1) 2024 9, 12/31/2017, 03/20/2017 DTaP/Tdap/Td Vaccine (2 - Td or Tdap) 08/26/2028 08/26/2018 Pneumococcal vaccine <65 Aged Out No longer eligible based on patient's age to complete this topic Insurance [place] [employer] [place] [id number] [place] [employer] [place] [id number] Care Teams Radiator Tester Relationship Specialty Start Date End Date Juliet Turner MD PCP - General Family Medicine 08/06/19
== END 2024-12-02 07:58 | disposition home or self-care (01) ==
LOC: ANHFOHIMG 07:59
PROVIDERS: PCP Family Medicine; Visit Provider Family Medicine
DX: Z12.31 Encounter for screening mammogram for malignant neoplasm of breast (principal)
CPT/HCPCS: 77063; 77067